=== PATIENT | male | born 1990 | race Caucasian/White ===

== ENCOUNTER 2016-12-14 19:17 | Emergency (ER) | payer BC ==
[~2016-12-14] VITALS: Ht 177.8 cm; Wt 122.7 kg
[~2016-12-14 19:17] MED LIST: NO HOME MEDICATIONS
[2016-12-14 19:20] VITALS: BP 150/93; TEMP 99.2
[2016-12-14 20:27] VITALS: PULSE 88
== END 2016-12-14 20:27 | disposition home or self-care (01) ==
LOC: COL.ER 19:17
DX: S31.114A Laceration without foreign body of abdominal wall, left lower quadrant without penetration into peritoneal cavity, initial encounter (principal); F17.210 Nicotine dependence, cigarettes, uncomplicated; Z23 Encounter for immunization; W11.XXXA Fall on and from ladder, initial encounter; W25.XXXA Contact with sharp glass, initial encounter; Y92.009 Unspecified place in unspecified non-institutional (private) residence as the place of occurrence of the external cause